=== PATIENT | male | born 1985 | race Caucasian/White ===

== ENCOUNTER 2018-09-13 18:52 | Inpatient (IN) | payer MEDICAID ==
[~2018-09-13] VITALS: Ht 180.3 cm; Wt 82.4 kg
[~2018-09-13 18:52] MED LIST: A20IH1 IH; NOCURR
[2018-09-13 19:03] LABS: GLUCOSE,POINT OF CARE 222 MG/DL (70-110)
[2018-09-13 19:25] LABS: HEMATOCRIT 39.8 % (41-53); HEMOGLOBIN 13.4 g/dL (13.5-17.5); MEAN CORPUSCULAR HGB CONC 33.7 G/dL (31.0-37.0); MEAN CORPUSCULAR VOLUME 89 fL (80-100); PLATELET COUNT (AUTO) 394 K/uL (150-450); RED BLOOD CELL COUNT(AUTO) 4.46 MIL/uL (4.50-5.90); RED CELL DISTRIBUTION WIDTH 13.9 % (11.5-14.5)
[2018-09-13 19:48] LABS: ANION GAP 17 mmol/L (8-16); CALCIUM, TOTAL 9.2 mg/dL (8.8-10.5); CARBON DIOXIDE 24 mmol/L (22-29); CHLORIDE 94 mmol/L (98-107); GLOMERULAR FILTR. RATE CALC > 60 mL/min (>60); GLUCOSE,RANDOM 269 mg/dL (70-110); POTASSIUM 3.8 mmol/L (3.5-5.1); SODIUM SERUM 135 mmol/L (136-145); UREA NITROGEN, BLOOD 27 mg/dL (7-18)
[2018-09-13 19:50] LABS: BAND NEUTROPHILS % (MANUAL) 10 % (0-5); LYMPHOCYTES % (MANUAL) 3 % (22-44); MONOCYTES % (MANUAL) 3 % (2-9); SEGMENTED NEUTROPHILS % 84 % (40-70)
[2018-09-13 19:55] LABS: ALANINE AMINOTRANSFERASE 38 U/L (12-78); ALBUMIN 4.1 g/dL (3.4-5.0); ALKALINE PHOSPHATASE 47 U/L (46-116); ASPARTATE AMINOTRANSFERASE 34 U/L (15-37); BILIRUBIN,TOTAL 1.8 mg/dL (0.1-1.0); TOTAL PROTEIN, SERUM 7.9 g/dL (6.4-8.2)
[2018-09-13] MEDS ORDERED: ONDANSETRON HCL 4 MG/2 ML VIAL IVP ONE (20:30)
[2018-09-13] MEDS ORDERED: SODIUM CHLORIDE 0.9% 1,000 ML IV ONE (20:30)
[2018-09-13] MEDS ORDERED: LORazepam 2 MG/ML VIAL IVP ONE ×2 (20:30→21:00)
[2018-09-13] MEDS ORDERED: MAGNESIUM SULFATE 2 GM, MVI, ADULT NO.1 WITH VIT K 10 ML, THIAMINE HCL 100 MG, FOLIC AC... IV ONE ×5 (21:00)
[2018-09-13] MEDS ORDERED: SODIUM CHLORIDE 0.9% 2,000 ML IV ONE (21:00)
[2018-09-13] MEDS ORDERED: FAMOTIDINE 40 MG in SODIUM CHLORIDE 0.9% 100 ML IV ONE (21:00)
[2018-09-13 21:09] LABS: PROTHROMBIN TIME 10.7 SEC (9.4-11.6)
[2018-09-13 21:09] LABS: LIPASE 93 U/L (73-393)
[2018-09-13 21:12] LABS: RETICULOCYTE % (AUTO) 2.3 % (0.5-2.3)
[2018-09-13] MEDS ORDERED: 0.9% SODIUM CHLORIDE 10 ML SYRINGE IVP PRN (21:15)
[2018-09-13] MEDS ORDERED: ONDANSETRON HCL 4 MG/2 ML VIAL IVP PRN ×2 (21:15→21:45)
[2018-09-13] MEDS ORDERED: ACETAMINOPHEN 325 MG TABLET PO PRN ×2 (21:15→21:45)
[2018-09-13 21:27] LABS: B-TYPE NATRIURETIC PEPTIDE < 5 pg/mL (0-100)
[2018-09-13 21:34] LABS: LACTIC ACID 7.1 mmol/L (0.4-2.0)
[2018-09-13] MEDS ORDERED: MORPHINE SULFATE 4 MG/ML SYRINGE IVP PRN (21:45)
[2018-09-13] MEDS ORDERED: ALBUTEROL SULFATE 2.5 MG/0.5 ML NEB SOLUTION NEB PRN (21:45)
[2018-09-13] MEDS ORDERED: BISACODYL 10 MG RECTAL RECTAL SUPPOSITORY PR PRN (21:45)
[2018-09-13] MEDS ORDERED: MAGNESIUM HYDROXIDE SUSPENSION 30 ML UDCUP PO PRN (21:45)
[2018-09-13] MEDS ORDERED: ZOLPIDEM TARTRATE 5 MG TABLET PO PRN (21:45)
[2018-09-13] MEDS ORDERED: IPRATROPIUM BROMIDE 0.5 MG/2.5 ML NEB SOLUTION NEB PRN (21:45)
[2018-09-13 22:37] VITALS: BP 128/76
[2018-09-14 04:18] VITALS: BP 125/65
[2018-09-14 05:48] LABS: BASOPHILS % (AUTO) 0.4 % (0.0-2.0); EOSINOPHILS % (AUTO) 0.2 % (1.0-6.0); HEMATOCRIT 26.4 % (41-53); HEMOGLOBIN 9.5 g/dL (13.5-17.5); LYMPHOCYTES # (AUTO) 1.2 K/uL (1.0-4.8); LYMPHOCYTES % (AUTO) 9.7 % (22.0-44.0); MEAN CORPUSCULAR HEMOGLOBIN 31.9 pg (26.0-34.0); MEAN CORPUSCULAR HGB CONC 36.2 G/dL (31.0-37.0); MEAN CORPUSCULAR VOLUME 88 fL (80-100); MONOCYTES # (AUTO) 1.1 K/uL (0.1-1.0); MONOCYTES % (AUTO) 9.1 % (2.0-9.0); NEUTROPHILS # (AUTO) 9.9 K/uL (1.8-7.7); NEUTROPHILS % (AUTO) 80.6 % (40.0-70.0); PLATELET COUNT (AUTO) 190 K/uL (150-450); RED BLOOD CELL COUNT(AUTO) 2.99 MIL/uL (4.50-5.90); RED CELL DISTRIBUTION WIDTH 13.6 % (11.5-14.5)
[2018-09-14 05:58] LABS: HEMOGLOBIN A1C 4.9 % (4.5-6.2)
[2018-09-14 06:02] LABS: ALANINE AMINOTRANSFERASE 27 U/L (12-78); ALKALINE PHOSPHATASE 33 U/L (46-116); ANION GAP 7 mmol/L (8-16); ASPARTATE AMINOTRANSFERASE 26 U/L (15-37); BILIRUBIN,TOTAL 1.4 mg/dL (0.1-1.0); CALCIUM, TOTAL 7.8 mg/dL (8.8-10.5); CARBON DIOXIDE 26 mmol/L (22-29); CHLORIDE 104 mmol/L (98-107); CREATININE 0.79 mg/dL (0.60-1.30); GLOMERULAR FILTR. RATE CALC > 60 mL/min (>60); GLUCOSE,RANDOM 100 mg/dL (70-110); PHOSPHORUS 3.1 mg/dL (2.5-4.9); SODIUM SERUM 137 mmol/L (136-145); TOTAL PROTEIN, SERUM 5.8 g/dL (6.4-8.2); UREA NITROGEN, BLOOD 17 mg/dL (7-18)
[2018-09-14 08:21] VITALS: BP 119/72
[2018-09-14] MEDS: OxyCODONE HCL/ACETAMINOPHEN 5-325 MG TABLET PO PRN ×2 (08:25→23:09)
[2018-09-14] MEDS ORDERED: PANTOPRAZOLE SODIUM 40 MG/VIAL IVP SCH (09:00)
[2018-09-14] MEDS: LORazepam 2 MG/ML VIAL IVP PRN ×2 (11:57→23:07)
[2018-09-14 12:08] VITALS: BP 116/60
[2018-09-14] MEDS: PANTOPRAZOLE SODIUM 80 MG in SODIUM CHLORIDE 0.9% 100 ML IV SCH ×2 (13:28→23:07)
[2018-09-14 17:01] VITALS: BP 117/69
[2018-09-14] MEDS ORDERED: SODIUM CHLORIDE 0.9% 1,000 ML IV ONE (17:04)
[2018-09-14 19:55] VITALS: BP 130/70
[2018-09-14 23:33] VITALS: BP 127/69
[2018-09-15 05:00] VITALS: BP 136/64
[2018-09-15] MEDS ORDERED: LIDOCAINE/PF 2% 5 ML VIAL IM ONE (05:37)
[2018-09-15] MEDS ORDERED: PROPOFOL 1% 20 ML VIAL IVP ONE (05:37)
[2018-09-15 08:19] VITALS: BP 129/68
[2018-09-15] MEDS: PANTOPRAZOLE SODIUM 80 MG in SODIUM CHLORIDE 0.9% 100 ML IV SCH ×2 (09:11→20:14)
[2018-09-15] MEDS: OxyCODONE HCL/ACETAMINOPHEN 5-325 MG TABLET PO PRN ×3 (09:11→20:13)
[2018-09-15 11:36] VITALS: BP 103/57
[2018-09-15 15:39] VITALS: BP 123/70
[2018-09-15 20:13] VITALS: BP 121/75
[2018-09-16] VITALS (7 sets, daily range): BP systolic 106–142; BP diastolic 56–82
[2018-09-16] MEDS: OxyCODONE HCL/ACETAMINOPHEN 5-325 MG TABLET PO PRN ×4 (00:25→19:46)
[2018-09-16] MEDS: PANTOPRAZOLE SODIUM 80 MG in SODIUM CHLORIDE 0.9% 100 ML IV SCH (06:27)
[2018-09-17 04:00] VITALS: BP 120/68
[2018-09-17] MEDS: OxyCODONE HCL/ACETAMINOPHEN 5-325 MG TABLET PO PRN ×2 (08:11→12:35)
[2018-09-17 08:32] VITALS: BP 109/68
[2018-09-17] MEDS ORDERED: PANTOPRAZOLE SODIUM 40 MG/VIAL IVP SCH (09:00)
[2018-09-17 12:14] VITALS: BP 113/72
[2018-09-17] MEDS ORDERED: OMEP20 PO (14:01)
== END 2018-09-17 15:50 | disposition home or self-care (01) | DRG 242 ==
LOC: EMS 18:53 → 5S 21:42
PROVIDERS: ADMIT Internal Medicine; ATTEND Internal Medicine
PROC: 0DB68ZX Excision of Stomach, Via Natural or Artificial Opening Endoscopic, Diagnostic (ICD-10-PCS; 2018-09-14)
PROC: 0DB98ZX Excision of Duodenum, Via Natural or Artificial Opening Endoscopic, Diagnostic (ICD-10-PCS; principal; 2018-09-14 17:30)
DX: K22.6 Gastro-esophageal laceration-hemorrhage syndrome (principal); R65.10 Systemic inflammatory response syndrome (SIRS) of non-infectious origin without acute organ dysfunction; K70.30 Alcoholic cirrhosis of liver without ascites; F10.10 Alcohol abuse, uncomplicated; J45.909 Unspecified asthma, uncomplicated; R73.9 Hyperglycemia, unspecified; K20.9 Esophagitis, unspecified; D72.829 Elevated white blood cell count, unspecified; E86.0 Dehydration; K29.20 Alcoholic gastritis without bleeding; F19.10 Other psychoactive substance abuse, uncomplicated; F12.10 Cannabis abuse, uncomplicated; Z79.899 Other long term (current) drug therapy
CPT/HCPCS: 83036; 83605; 83735; 84100; 85045; 86850; 86900; 86901; 87040; 87205; 88305; 88312; 93005; 96374; 96375; 99291; C9113; G0378; G0480; J2060; J2405; J2704; J3411; J3475; J3490; J7030; J7050

== ENCOUNTER 2018-12-25 04:30 | Emergency (ER) | payer MEDICAID, OTHER ==
[~2018-12-25] VITALS: Ht 180.3 cm; Wt 84.1 kg
[~2018-12-25 04:30] MED LIST changes: -NOCURR; +OMEP20 PO
[2018-12-25] MEDS ORDERED: SODIUM CHLORIDE 0.9% 1,000 ML IV ONE ×2 (05:00→06:45)
[2018-12-25 05:37] LABS: AMPHET/METH SCREEN,URINE NEGATIVE (NEGATIVE); BARBITURATE SCREEN, URINE NEGATIVE (NEGATIVE); BENZODIAZEPINES SCREEN,URINE NEGATIVE (NEGATIVE); CANNABINOID SCREEN,URINE NEGATIVE (NEGATIVE); COCAINE SCREEN,URINE NEGATIVE (NEGATIVE); METHADONE SCREEN, URINE NEGATIVE (NEGATIVE); OPIATE SCREEN,URINE NEGATIVE (NEGATIVE)
[2018-12-25 05:40] LABS: BASOPHILS % (AUTO) 0.8 % (0.0-2.0); EOSINOPHILS % (AUTO) 2.6 % (1.0-6.0); HEMATOCRIT 43.8 % (41-53); HEMOGLOBIN 14.8 g/dL (13.5-17.5); LYMPHOCYTES # (AUTO) 1.7 K/uL (1.0-4.8); LYMPHOCYTES % (AUTO) 29.4 % (22.0-44.0); MEAN CORPUSCULAR HGB CONC 33.8 G/dL (31.0-37.0); MEAN CORPUSCULAR VOLUME 77 fL (80-100); MONOCYTES # (AUTO) 0.7 K/uL (0.1-1.0); NEUTROPHILS # (AUTO) 3.1 K/uL (1.8-7.7); NEUTROPHILS % (AUTO) 55.2 % (40.0-70.0); PLATELET COUNT (AUTO) 176 K/uL (150-450); RED CELL DISTRIBUTION WIDTH 15.7 % (11.5-14.5)
[2018-12-25 05:44] LABS: PHENCYCLIDINE SCREEN,URINE NEGATIVE (NEGATIVE)
[2018-12-25] MEDS ORDERED: LORazepam 2 MG/ML VIAL IVP ONE (05:45)
[2018-12-25 05:58] LABS: ALANINE AMINOTRANSFERASE 45 U/L (12-78); ALBUMIN 4.5 g/dL (3.4-5.0); ALKALINE PHOSPHATASE 62 U/L (46-116); ANION GAP 13 mmol/L (8-16); ASPARTATE AMINOTRANSFERASE 46 U/L (15-37); BILIRUBIN,TOTAL 1.1 mg/dL (0.1-1.0); CALCIUM, TOTAL 9.3 mg/dL (8.8-10.5); CARBON DIOXIDE 26 mmol/L (22-29); CHLORIDE 100 mmol/L (98-107); CREATININE 1.11 mg/dL (0.60-1.30); GLOMERULAR FILTR. RATE CALC > 60 mL/min (>60); GLUCOSE,RANDOM 108 mg/dL (70-110); SODIUM SERUM 139 mmol/L (136-145); TOTAL PROTEIN, SERUM 8.8 g/dL (6.4-8.2); UREA NITROGEN, BLOOD 12 mg/dL (7-18)
[2018-12-25 06:19] LABS: FREE T4 (FREE THYROXINE) 0.99 ng/dL (0.76-1.46)
[2018-12-25] MEDS ORDERED: ChlordiazePOXIDE HCL 10 MG CAPSULE PO ONE (06:45)
[2018-12-25] MEDS ORDERED: POTASSIUM CHLORIDE 20 MEQ ER TABLET PO ONE (06:45)
[2018-12-25 07:10] VITALS: BP 116/55
== END 2018-12-25 09:18 | disposition home or self-care (01) ==
LOC: EMS 04:30
DX: F10.239 Alcohol dependence with withdrawal, unspecified (principal); J45.909 Unspecified asthma, uncomplicated; F12.90 Cannabis use, unspecified, uncomplicated; Y90.2 Blood alcohol level of 40-59 mg/100 ml
CPT/HCPCS: 36415; 71045; 80053; 80307; 84439; 84443; 84484; 85025; 93005; 96374; 99285; G0480; J2060; J7030

== ENCOUNTER 2025-05-10 00:16 | Inpatient (IN) | payer MEDICAID, OTHER ==
[2025-05-10] VITALS (7 sets, daily range): BP systolic 106–123; BP diastolic 73–86; PULSE 74–94; RESP 16–18; TEMP 97.3–99; O2SAT 95–100
[~2025-05-10] VITALS: Ht 180.3 cm; Wt 78.1 kg
[~2025-05-10 00:16] MED LIST changes: +OMEP-148 PO; -OMEP20 PO
[2025-05-10 03:33] LABS: PLATELET COUNT (AUTO) 167 K/uL (150-450); RED BLOOD CELL COUNT(AUTO) 4.52 MIL/uL (4.50-5.90); RED CELL DISTRIBUTION WIDTH 19.6 % (11.5-14.5); WHITE BLOOD COUNT (AUTO) 4.4 K/uL (4.5-11.0)
[2025-05-10 03:47] LABS: ASPARTATE AMINOTRANSFERASE 118.0 U/L (15-37); TOTAL PROTEIN, SERUM 7.7 g/dL (6.4-8.2)
[2025-05-10 04:05] LABS: CALCIUM, TOTAL 8.8 mg/dL (8.8-10.5); CREATININE 0.58 mg/dL (0.60-1.30); GLOMERULAR FILTR. RATE CALC > 60 mL/min (>60); GLUCOSE,RANDOM 93 mg/dL (70-110); SODIUM SERUM 138 mmol/L (136-145); UREA NITROGEN, BLOOD 8 mg/dL (7-18)
[2025-05-10 04:17] LABS: ALCOHOL, BLOOD (SERUM) 366.0 mg/dL (0-10)
[2025-05-10] MEDS: ALBUTEROL SULFATE HFA 90 MCG/PUFF 8 GM INHALER IH ONE (04:40)
[2025-05-10 04:49] LABS: COVID AG,FIA SOURCE NASAL SWAB
[2025-05-10 05:09] LABS: SARS-COV2 (COVID) ANTIGEN,FIA Negative (Negative)
[2025-05-10 08:58] LABS: APPEARANCE,URINE CLEAR (CLEAR); GLUCOSE, URINE (UA) NEGATIVE (NEGATIVE); LEUKOCYTE ESTERASE ,URINE NEGATIVE (NEGATIVE); NITRATE,URINE NEGATIVE (NEGATIVE); OCCULT BLOOD,URINE NEGATIVE (NEGATIVE); PH,URINE DRUG SCREEN 6.0 (5.0-8.0); SPECIFIC GRAVITIY, URINE 1.019 (1.003-1.030)
[2025-05-10 09:04] LABS: AMPHET/METH SCREEN,URINE NEGATIVE (NEGATIVE); BARBITURATE SCREEN, URINE NEGATIVE (NEGATIVE); CANNABINOID SCREEN,URINE NEGATIVE (NEGATIVE); COCAINE SCREEN,URINE NEGATIVE (NEGATIVE); METHADONE SCREEN, URINE NEGATIVE (NEGATIVE)
[2025-05-10 09:05] LABS: ALCOHOL, URINE DRUG SCREEN POSITIVE (NEGATIVE)
[2025-05-10] MEDS ORDERED: ALBUTEROL SULFATE HFA 90 MCG/PUFF 8 GM INHALER IH PRN (21:00)
[2025-05-11] VITALS (8 sets, daily range): BP systolic 122–138; BP diastolic 76–91; PULSE 82–98; RESP 16–18; TEMP 97.3–99.1; O2SAT 98–99
[2025-05-11] MEDS ORDERED: DOCUSATE SODIUM 100 MG CAPSULE PO PRN (07:00)
[2025-05-11] MEDS ORDERED: BACITRACIN 28 GM OINTMENT TP PRN (07:00)
[2025-05-11] MEDS ORDERED: MAG HYDROX/ALUMINUM HYD/SIMETH ES 30 ML SUSPENSION UDCUP PO PRN (07:00)
[2025-05-11] MEDS ORDERED: PETROLATUM,WHITE 28 GM JELLY TP PRN (07:00)
[2025-05-11] MEDS ORDERED: BENZOCAINE/MENTHOL [CEPACOL] LOZENGE PO PRN (07:00)
[2025-05-11] MEDS ORDERED: MAGNESIUM HYDROXIDE SUSPENSION 30 ML UDCUP PO PRN (07:00)
[2025-05-11] MEDS ORDERED: ACETAMINOPHEN 325 MG TABLET PO PRN (07:00)
[2025-05-11] MEDS: OMEPRAZOLE 20 MG CAPSULE PO SCH (09:37)
[2025-05-11] MEDS: NICOTINE POLACRILEX 2 MG LOZENGE PO PRN (14:34)
[2025-05-11] MEDS: ZOLPIDEM TARTRATE 10 MG TABLET PO PRN (21:07)
[2025-05-12] VITALS (9 sets, daily range): BP systolic 101–138; BP diastolic 60–83; PULSE 69–87; RESP 17–19; TEMP 97.2–98.4; O2SAT 98–99
[2025-05-12] MEDS: ONDANSETRON 4 MG TABLET PO PRN (03:13)
[2025-05-12] MEDS: IBUPROFEN 600 MG TABLET PO PRN (03:14)
[2025-05-12] MEDS: LOPERAMIDE HCL 2 MG CAPSULE PO PRN (03:17)
[2025-05-12] MEDS: MULTIVITAMINS WITH MINERALS, THERAPEUTIC TABLET PO SCH (08:14)
[2025-05-12] MEDS: FOLIC ACID 1 MG TABLET PO SCH (08:15)
[2025-05-12] MEDS: THIAMINE 100 MG TABLET PO SCH (08:15)
[2025-05-12 09:56] LABS: CHOL/HDL RATIO 1.8 (4.2-7.3); LDL CHOL (CALC.) 62.0 mg/dL (0-130); PHOSPHORUS 4.3 mg/dL (2.5-4.9)
[2025-05-13] VITALS (8 sets, daily range): BP systolic 109–120; BP diastolic 65–84; PULSE 63–90; RESP 16–17; TEMP 97.3–99; O2SAT 98–99
[2025-05-13] MEDS: NICOTINE 21 MG/24 HOUR PATCH TD PRN (09:46)
[2025-05-14 01:22] VITALS: BP 120/84; PULSE 85; RESP 16; TEMP 98.1; O2SAT 98
[2025-05-14 08:29] VITALS: BP 114/85; PULSE 84; PULSE 95; RESP 17; TEMP 97.6; TEMP 97.8; O2SAT 99
== END 2025-05-14 15:35 | disposition home or self-care (01) | DRG 761 ==
LOC: EMS 00:17 → B3A 13:42
PROVIDERS: ADMIT Psychiatry & Neurology Psychiatry; ATTEND Psychiatry & Neurology Psychiatry
DX: F25.9 Schizoaffective disorder, unspecified (principal); R45.851 Suicidal ideations; F10.10 Alcohol abuse, uncomplicated; F41.9 Anxiety disorder, unspecified; G47.00 Insomnia, unspecified; Z20.822 Contact with and (suspected) exposure to COVID-19; K21.9 Gastro-esophageal reflux disease without esophagitis; J45.909 Unspecified asthma, uncomplicated; K59.00 Constipation, unspecified; F12.10 Cannabis abuse, uncomplicated; Y90.8 Blood alcohol level of 240 mg/100 ml or more; Z72.0 Tobacco use
CPT/HCPCS: 80048; 80061; 80076; 80307; 81003; 83036; 83735; 84100; 85025; 94640; G0480; J3535; Q0162